=== PATIENT | male | born 1960 | race Caucasian/White ===

== ENCOUNTER 2020-01-10 09:53 | Outpatient (REF) | payer OTHER, SELFPAY | END 2020-01-10 09:54 | disposition home or self-care (01) | LOC: HO.LAB 09:53 | PROVIDERS: Visit Provider Internal Medicine | DX: Z20.828 Contact with and (suspected) exposure to other viral communicable diseases (principal) | CPT/HCPCS: C9803; U0003 ==

== ENCOUNTER 2022-06-04 08:19 | Emergency (ER) | payer OTHER, SELFPAY ==
[2022-06-04 08:25] VITALS: BP 174/71; PULSE 66; RESP 19; O2SAT 98; BMI 31.2
--- NOTE | 2022-06-04 08:30 | ED.GENADULT ---
HPI - General Adult General Chief complaint: Wound/Laceration Stated complaint: bit by jace Time Seen by Provider: 06/04/22 08:26 Source: patient Limitations: no limitations History of Present Illness HPI narrative: bit by jace 4 days ago Onset (ago): day(s) Location: upper extremity Severity: mild Associated symptoms: denies other symptoms Related Data Allergies Allergy/AdvReac Type Severity Reaction Status Date / Time No Known Allergies Allergy Verified 06/04/22 08:37 Review of Systems Review of Systems: Yes all other systems are reviewed and are negative [facility] Social History Social History Advance Directives: No Advance Directives Information Provided: No Physical Exam ED Vital Signs: Vital Signs - 24 hr 06/04/22 08:25 Pulse Rate 66 Respiratory Rate 19 Blood Pressure 174/71 H Pulse Oximetry 98 Oxygen Delivery Method Room Air BMI result Body Mass Index 31.2 Const General: healthy appearing Nutritional Appearance: average body habitus Orientation/consciousness: oriented to person and patient oriented x3 Limitations: no limitations HENMT Head: Yes normal to inspection Ears: external ears normal General nose exam: Normal external nose present Mouth: Normal oral and palatal mucosa present and oropharynx normal Throat: Yes posterior oropharynx normal Eyes General: appearance normal, both eyes and all related structures Neck Neck: Yes normal visual inspection Chest Chest palpation & inspection: normal inspection of the chest Resp Auscultation: clear to auscultation bilaterally Cardio Jugular venous distension: no JVD Rate: regular rate Rhythm: regular rhythm Heart sounds: S1 normal heart sound present and S2 normal heart sound present GI Inspection: Yes normal to inspection Palpation (GI): Soft to palpation, nontender and No hepatosplenomegaly present Auscultation: normal bowel sounds General: Yes no CVA tenderness Back/Spine/Pelvis Back: no CVA tenderness Skin Other: small scratch to right hand, no erythema Neuro General: oriented to person and patient oriented x3 Cranial nerves: Yes CN's II-XII intact bilaterally Motor exam (neuro): 5/5 motor strength present throughout Extrem General: Yes normal to inspection Psych Appearance: grossly normal Medications Administered Discontinued Medications Generic Name Dose Route Start Last Admin Trade Name Freq PRN Reason Stop Dose Admin Diphtheria/Tetanus/Acell Pertussis 0.5 ml 06/04/22 09:06 06/04/22 09:41 Diphth,Pertus(Acell),Tet Adult 0.5 Ml Syringe IM 06/04/22 09:07 0.5 ml .ONCE ONE Administration Rabies Immune Globulin 1,920 unit 06/04/22 08:43 06/04/22 09:33 Rabies Immune Globulin/Pf 900 Unit/3 Ml Vial 20 unit/kg (1920 unit) 06/04/22 08:44 1,920 unit IM Administration ONCE ONE Rabies Vaccine Human Diploid Cell 0.5 ml 06/04/22 08:43 06/04/22 09:30 Rabies Vaccine, Human Diploid (Imovax) 0.5 Ml Vial IM 06/04/22 08:44 0.5 ml .ONCE ONE Administration Medical Decision Making Differential Diagnosis Differential Diagnoses: The differential diagnosis associated with the presentation includes (superficial abrasion, rabies exposure) Prescription Management I considered prescription management with: Antibiotic (I considered giving and antibiotic but patient is 4 days into this injury with no evidence of infection) Discharge Plan Discharge Clinical Impression: Rabies, need for prophylactic vaccination against Patient Disposition: Home, Self-Care Instructions: Rabies Vaccine (By injection), Rabies Immune Globulin (By injection), Rabies (ED) Additional Instructions: must go to medical day stay on day 3, 7, 14. Call [phone]
[2022-06-04] MEDS: Rabies Immune Globulin/PF 900 UNIT/3 ML VIAL 1920 UNIT IM (09:33)
[2022-06-04] MEDS: Diphth,Pertus(ACell),Tet Adult 0.5 ML SYRINGE IM (09:41)
== END 2022-06-04 10:21 | disposition home or self-care (01) ==
PROVIDERS: Emergency Provider Emergency Medicine
DX: S61.451A Open bite of right hand, initial encounter (principal); W55.51XA Bitten by raccoon, initial encounter; Y93.89 Activity, other specified; Y92.9 Unspecified place or not applicable; Y99.9 Unspecified external cause status; Z20.3 Contact with and (suspected) exposure to rabies; Z23 Encounter for immunization
CPT/HCPCS: 90375; 90471; 90675; 90715; 96372; 99283; 99284

== ENCOUNTER 2022-06-07 14:13 | Outpatient (REF) | payer OTHER, SELFPAY | END 2022-06-07 14:14 | disposition home or self-care (01) | LOC: HO.MDS 14:13 | PROVIDERS: Visit Provider Emergency Medicine | DX: Z20.3 Contact with and (suspected) exposure to rabies (principal); T14.8XXA Other injury of unspecified body region, initial encounter; W55.51XA Bitten by raccoon, initial encounter; Y93.9 Activity, unspecified; Y92.9 Unspecified place or not applicable; Y99.9 Unspecified external cause status | CPT/HCPCS: 90471; 90675 ==

== ENCOUNTER 2022-06-11 10:47 | Outpatient (REF) | payer OTHER, SELFPAY | END 2022-06-11 10:48 | disposition home or self-care (01) | LOC: HO.MDS 10:47 | PROVIDERS: PCP Internal Medicine; Visit Provider Emergency Medicine | DX: Z20.3 Contact with and (suspected) exposure to rabies (principal); T14.8XXA Other injury of unspecified body region, initial encounter; W55.51XA Bitten by raccoon, initial encounter; Y93.9 Activity, unspecified; Y92.9 Unspecified place or not applicable; Y99.9 Unspecified external cause status | CPT/HCPCS: 90471; 90675 ==

== ENCOUNTER 2022-06-18 09:48 | Outpatient (REF) | payer OTHER, SELFPAY | END 2022-06-18 09:49 | disposition home or self-care (01) | LOC: HO.MDS 09:48 | PROVIDERS: PCP Internal Medicine; Visit Provider Emergency Medicine | DX: Z20.3 Contact with and (suspected) exposure to rabies (principal); T14.8XXA Other injury of unspecified body region, initial encounter; W55.51XA Bitten by raccoon, initial encounter; Y93.9 Activity, unspecified; Y92.9 Unspecified place or not applicable; Y99.9 Unspecified external cause status | CPT/HCPCS: 90471; 90675 ==

== ENCOUNTER 2023-08-11 06:31 | Day surgery (SDC) | payer OTHER, SELFPAY ==
[2023-08-09 14:45] VITALS: BMI 32.2
--- NOTE | 2023-08-10 08:45 | P.CONAN_ITS ---
Documented by User: Rebeca Magallanes NP 08/10/23 08:45 HPI - Anesthesia Eval Consult details Narrative: 63yo M for Colonoscopy [facility] Past Medical History Medical History (Updated 08/09/23 @ 14:42 by Noris Stapleton RN) Hyperlipidemia Palpitations HTN (hypertension) Asthma Surgical History Surgical History (Updated 08/09/23 @ 14:42 by Noris Stapleton RN) Hx of spinal fusion Hx of nasal polypectomy H/O colonoscopy Social History Social History (Updated 08/09/23 @ 14:42 by Noris Stapleton RN) Household Members: Spouse Patient Tobacco Use Status: Never used Tobacco Use of substances other than those prescribed or required for medical reasons: No Are you DNR?: No Advance Directives: No Advance Directives Information Provided: Yes Meds Allergies Allergy/AdvReac Type Severity Reaction Status Date / Time No Known Allergies Allergy Verified 08/11/23 06:43 Home Medications ?Medication ?Instructions ?Recorded ?Confirmed ?Last Taken ?Type atenolol 25 mg tablet 25 mg PO DAILY 08/09/23 08/11/23 Unknown History atorvastatin 10 mg tablet 10 mg PO DAILY 08/09/23 08/11/23 Unknown History fluticasone 250 mcg-salmeterol 50 1 inh inhalation BID 08/09/23 08/11/23 08/11/23 History mcg/dose blistr powdr for inhalation (Wixela Inhub) sildenafil 100 mg tablet 100 mg PO DAILY PRN Erectile 08/09/23 08/11/23 Unknown History Dysfunction Exam Height,Weight and Vital Signs: Height 5 ft 9 in Weight 98.883 kg Assessment and Plan Assessment Anesthesia Assessment: Chart Reviewed Documented by User: Zacarias Sidhu MD 08/11/23 07:19 [facility] Past Medical History Medical History (Updated 08/09/23 @ 14:42 by Noris Stapleton RN) Hyperlipidemia Palpitations HTN (hypertension) Asthma Family History Family history of problems with anesthesia: No Surgical History Surgical History (Updated 08/09/23 @ 14:42 by Noris Stapleton RN) Hx of spinal fusion Hx of nasal polypectomy H/O colonoscopy History of Problems with Anesthesia: No Social History Social History (Updated 08/09/23 @ 14:42 by Noris Stapleton RN) Household Members: Spouse Patient Tobacco Use Status: Never used Tobacco Use of substances other than those prescribed or required for medical reasons: No Are you DNR?: No Advance Directives: No Advance Directives Information Provided: Yes Meds Allergies Allergy/AdvReac Type Severity Reaction Status Date / Time No Known Allergies Allergy Verified 08/11/23 06:43 Home Medications ?Medication ?Instructions ?Recorded ?Confirmed ?Last Taken ?Type atenolol 25 mg tablet 25 mg PO DAILY 08/09/23 08/11/23 Unknown History atorvastatin 10 mg tablet 10 mg PO DAILY 08/09/23 08/11/23 Unknown History fluticasone 250 mcg-salmeterol 50 1 inh inhalation BID 08/09/23 08/11/23 08/11/23 History mcg/dose blistr powdr for inhalation (Wixela Inhub) sildenafil 100 mg tablet 100 mg PO DAILY PRN Erectile 08/09/23 08/11/23 Unknown History Dysfunction Exam Airway Mallampati Class: III TM Dist: >3cm Neck ROM: Full Assessment and Plan Assessment Anesthesia Assessment: Anesthesia Plan Discussed Final Anesthetic Review Family History of Problems with Anesthesia: No History of Problems with Anesthesia: No NPO: Yes ASA Class: III Final Preanesthetic Review: No Changes in Pt Med Stat, Meds/Allgs Chart Reviewed, Consent Obtained/Reviewed and Anes Risks/Benef Reviewed Patient Risk: Intermediate Procedure Risk: Low Anesthetic Plan Anesthetic Plan: TIVA Disposition: Standard PACU
[2023-08-11 06:45] VITALS: BMI 29.8
[2023-08-11 06:59] VITALS: BP 159/75; PULSE 62; RESP 18; TEMP 36.4; O2SAT 95
[2023-08-11] MEDS: Lactated Ringers 1,000 ML 100 ML IVCONT (07:12)
--- NOTE | 2023-08-11 07:37 | PC.NURSE ---
24hr update documented on paper.
[2023-08-11 08:16] VITALS: BP 126/67; PULSE 72; RESP 15; TEMP 36.2; O2SAT 97
--- NOTE | 2023-08-11 08:16 | P.BOP_ITS ---
Brief Operative Note Date of Service: 08/11/23 Pre-op diagnosis: Screening Post-op diagnosis: other (Diverticulosis) Procedure: Colonoscopy to the cecum and TI Surgeon: Bhavesh Lowry MD Anesthesia: MAC Was an Adult Protective Caseworker used for this Procedure?: No Estimated blood loss (mL): 0 Pathology: none sent Condition: stable Disposition: PACU
[2023-08-11 08:31] VITALS: BP 148/77; PULSE 65; RESP 14; TEMP 36.2; O2SAT 99
--- NOTE | 2023-08-11 08:51 | OP_ITS ---
DATE OF SERVICE: 08/11/2023 SURGEON: Bhavesh Lowry MD INDICATIONS: The patient presents for evaluation of colorectal cancer screening and family history of colon cancer. Full consent was obtained from him for this, including risks of bleeding and perforation. PREOPERATIVE DIAGNOSIS: POSTOPERATIVE DIAGNOSIS: PROCEDURE PERFORMED: Colonoscopy to the cecum and terminal ileum. ESTIMATED BLOOD LOSS: COMPLICATIONS: ANESTHESIA: Medication used; monitored anesthesia care. ASSISTANTS: SPECIMENS: PREOPERATIVE DIAGNOSES: Colorectal cancer screening and family history of colon cancer. POSTOPERATIVE DIAGNOSES: Colorectal cancer screening and family history of colon cancer, mild diverticulosis, small internal hemorrhoids. DESCRIPTION OF PROCEDURE: The patient was placed in the left lateral decubitus position. The digital rectal exam revealed no abnormalities. The Olympus video pediatric colonoscope was entered into the rectum and advanced easily to the cecum. Once in the cecum, I did identify normal-appearing cecal pouch with appendiceal orifice and a normal-appearing ileocecal valve. The terminal ileum was cannulated and appeared normal. The scope was withdrawn back in the colon. The entire cecum and ileocecal valve appeared normal. The scope was slowly withdrawn assessing all mucosal surfaces carefully. Preparation was excellent. I did not visualize any sign of polyps, colitis, nor angiodysplasia. There was a mild amount of sigmoid diverticulosis. In the rectum, scope was retroflexed, visualizing small internal hemorrhoids, but no other pathology. The rectal mucosa appeared normal. The scope was straightened and withdrawn from the patient. He tolerated the procedure well and was returned to recovery area in stable condition. IMPRESSION: 1. Diverticulosis. 2. Internal hemorrhoids. PLAN: Given his negative exam, but family history of colon cancer in his father at a relatively early age, I would recommend a followup colonoscopy in 5 years for further screening. He will otherwise see me on a p.r.n. basis. This has been discussed with his . Bhavesh Lowry MD RMBrett/GLORIAL / [id number]
== END 2023-08-11 08:39 | disposition home or self-care (01) ==
PROVIDERS: PCP Internal Medicine; Visit Provider Internal Medicine
PROC: 0DJD8ZZ Inspection of Lower Intestinal Tract, Via Natural or Artificial Opening Endoscopic (ICD-10-PCS; CPT 45378; principal; 2023-08-11 07:30)
DX: Z12.11 Encounter for screening for malignant neoplasm of colon (principal); Z80.0 Family history of malignant neoplasm of digestive organs; K57.30 Diverticulosis of large intestine without perforation or abscess without bleeding; K64.8 Other hemorrhoids; I10 Essential (primary) hypertension; R00.2 Palpitations; J45.909 Unspecified asthma, uncomplicated; E78.5 Hyperlipidemia, unspecified; Z79.899 Other long term (current) drug therapy; Z79.51 Long term (current) use of inhaled steroids
CPT/HCPCS: 45378; J2704